=== PATIENT | female | born 1995 | race Two or more races ===

== ENCOUNTER 2016-11-13 04:09 | Emergency (ER) | payer OTHER ==
[~2016-11-13] VITALS: Ht 160 cm; Wt 81.6 kg
[~2016-11-13 04:09] MED LIST: AMOX500T2 PO
[2016-11-13] MEDS: OXYCODONE/APAP 5-325 MG TABLET PO ONE (04:39)
[2016-11-13] MEDS: PSEUDOEPHEDRINE HCL 30 MG TABLET PO ONE (04:39)
[2016-11-13] MEDS ORDERED: PSEUDOEPHEDRINE HCL 30 MG TABLET ONE (04:47)
[2016-11-13] MEDS ORDERED: OXYCODONE/APAP 5-325 MG TABLET ONE (04:47)
--- NOTE | 2016-11-13 04:49 | NUR ---
Patient discharged to home in stable conditon. Written and verbal after care instructions given. Patient verbalizes understanding of instructions.
== END 2016-11-13 04:51 | disposition home or self-care (01) ==
LOC: ER 04:13
DX: H66.91 Otitis media, unspecified, right ear (principal); H61.22 Impacted cerumen, left ear
CPT/HCPCS: A4663

== ENCOUNTER 2018-11-03 20:40 | Emergency (ER) | payer OTHER ==
[~2018-11-03] VITALS: Ht 160 cm; Wt 77.1 kg
[2018-11-03] MEDS ORDERED: LORA10CA PO (20:47)
--- NOTE | 2018-11-03 20:50 | NUR ---
Patient ambulated with stable gait. Speech clear, speaks in complete sentences. No neuro deficits. A/Ox4. Patient came for itching in hands and feet x1 week. Respiratory even and unlabored no cough or sob. No GI/ distress noted.
--- NOTE | 2018-11-03 21:29 | NUR ---
Patient discharged to home in stable conditon. Written and verbal after care instructions given. Patient verbalizes understanding of instructions. Patient ambulated with stable gait.
[2018-11-03 21:30] VITALS: BP 118/76
== END 2018-11-03 21:30 | disposition home or self-care (01) ==
LOC: ER 20:40
DX: L30.9 Dermatitis, unspecified (principal); Z79.899 Other long term (current) drug therapy
CPT/HCPCS: A4663

== ENCOUNTER 2018-12-30 20:21 | Emergency (ER) | payer OTHER ==
[~2018-12-30] VITALS: Ht 160 cm; Wt 77.1 kg
[~2018-12-30 20:21] MED LIST changes: -AMOX500T2 PO; +LORA10CA PO
--- NOTE | 2018-12-30 20:34 | NUR ---
Patient is AOx4, speaking in complete sentences, speech is clear. Able to follow /comprehend directions. Gait is stable. No cardiovascular distress noted. Rate/rhythm regular. No CP. No respiratory distress noted. Respirations even , unlabored, symmetrical chest rise. No adventitious sounds noted. Chief complaint: Patient comes in FROM [facility], C/O N/V BODY ACHES , COUGHING AND CHILLS FOR THE PAST 3DAYS. STATES SHE WAS IN THE ER LAST WEEK FOR THE SAME COMPLAINT. DENIES BLOOD IN EMESIS, DENIES DIARRHEA, DENIES ABD PAIN. LMP 12/02/2018, DENIES USE OF CONTROL No recent travel. No pertinent medical history/NKDA. - ETOH / -recreational drug usE. LBM- yesterday. Continent of bowel and bladder function. SAFETY Patient in bed, bed in lowest position. Siderails up x 2. Call light within reach. Will continue to monitor accordingly
[2018-12-30] MEDS ORDERED: PENICILLIN G BENZATHINE 2.4 MMU/4 ML DISP.SYRIN IM ONE ×2 (20:45→20:47)
--- NOTE | 2018-12-30 20:57 | NUR ---
PT ABLE TO TOLERATE ABX ORDERED. ADMINISTERED RUOQ GLUTEAL. Patient discharged to home in stable conditon. Written and verbal after care instructions given. Patient verbalizes understanding of instructions. AMBULATORY WITH STABLE GAIT
[2018-12-30 21:02] VITALS: BP 115/60
== END 2018-12-30 21:04 | disposition home or self-care (01) ==
LOC: ER 20:21
DX: J02.9 Acute pharyngitis, unspecified (principal); R11.10 Vomiting, unspecified; R51 Headache; Z79.899 Other long term (current) drug therapy
CPT/HCPCS: A4663

== ENCOUNTER 2019-04-18 22:22 | Emergency (ER) | payer OTHER ==
[~2019-04-18] VITALS: Ht 160 cm; Wt 78.0 kg
--- NOTE | 2019-04-18 22:35 | NUR ---
Dr. Benites at bedside for MSE.
--- NOTE | 2019-04-18 23:32 | NUR ---
Pt provided urine sample, sent to lab.
--- NOTE | 2019-04-19 00:10 | NUR ---
Patient discharged to home in stable conditon. Written and verbal after care instructions given. Patient verbalizes understanding of instructions. Pt ambulated out of ER with steady gait, no acute signs of distress, VSS, all belongings taken.
[2019-04-19 00:11] VITALS: BP 109/82
[2019-04-19 00:12] LABS: *URINE HCG, QUAL NEGATIVE (NEGATIVE)
== END 2019-04-19 00:11 | disposition home or self-care (01) ==
LOC: ER 22:24
DX: I88.8 Other nonspecific lymphadenitis (principal); Z79.899 Other long term (current) drug therapy
CPT/HCPCS: 84703; A4663

== ENCOUNTER 2019-07-23 20:59 | Emergency (ER) | payer OTHER ==
[~2019-07-23] VITALS: Ht 160 cm; Wt 77.1 kg
--- NOTE | 2019-07-23 21:15 | NUR ---
Patient c/o RLQ abdominal pain radiating to back with nausea and 2 episode of diarrhea.
--- NOTE | 2019-07-23 21:28 | NUR ---
Dr. Ferrera on bedside for [facility]. Urine specimen sent to lab
[2019-07-23 21:33] LABS: *BILIRUBIN,URIN NEGATIVE (NEGATIVE); *BLOOD, URINE NEGATIVE (NEGATIVE); *CLARITY,URINE CLEAR (CLEAR); *COLOR,URINE YELLOW (YELLOW); *KETONES,URINE NEGATIVE (NEGATIVE); *URINE HCG, QUAL NEGATIVE (NEGATIVE); *UROBILINOGEN,URINE 0.2 E.U./dl (NORMAL); LEUKOCYTE ESTERASE ,URINE NEGATIVE (NEGATIVE); NITRITE, URINE NEGATIVE (NEGATIVE); UGLUCOSE NEGATIVE (NEGATIVE)
[2019-07-23 21:45] LABS: BASOPHILS % (AUTO) 0.7 % (0.0-2.0); EOSINOPHILS # (AUTO) 0.1 K/uL (0.0-0.7); EOSINOPHILS % (AUTO) 1.3 % (0.0-7.0); HEMATOCRIT 37.7 % (31.2-41.9); HEMOGLOBIN 12.3 g/dL (10.9-14.3); LYMPHOCYTES # (AUTO) 1.8 K/uL (20.0-40.0); LYMPHOCYTES % (AUTO) 24.7 % (20.5-51.5); MEAN CORPUSCULAR HEMOGLOBIN 25.8 uug (24.7-32.8); MEAN CORPUSCULAR HGB CONC 33 g/dL (32.3-35.6); MEAN CORPUSCULAR VOLUME 79.3 fL (75.5-95.3); MONOCYTES # (AUTO) 0.5 K/uL (2.0-10.0); MONOCYTES % (AUTO) 6.6 % (0.0-11.0); NEUTROPHILS # (AUTO) 4.9 K/uL (1.8-8.9); NEUTROPHILS % (AUTO) 66.7 % (38.5-71.5); PLATELET COUNT (AUTO) 304 K/uL (179-408); RED BLOOD CELL COUNT(AUTO) 4.75 MIL/uL (3.63-4.92); WHITE BLOOD COUNT (AUTO) 7.3 K/uL (3.8-11.8)
[2019-07-23] MEDS ORDERED: IV NORMAL SALINE 1000 ML BAG IV ONE (21:45)
[2019-07-23] MEDS ORDERED: ONDANSETRON 4 MG/2 ML VIAL IV ONE (21:45)
[2019-07-23] MEDS ORDERED: HYDROMORPHONE 1 MG/1 ML DISP.SYRIN IV ONE (21:45)
[2019-07-23] MEDS ORDERED: ONDANSETRON 4 MG/2 ML VIAL ONE (21:47)
[2019-07-23] MEDS ORDERED: HYDROMORPHONE 1 MG/1 ML DISP.SYRIN ONE (21:47)
[2019-07-23 21:55] LABS: CREATININE 0.8 mg/dL (0.6-1.3); POTASSIUM 3.8 mmol/L (3.5-5.1)
[2019-07-23 22:01] LABS: BILIRUBIN,DIRECT 0.1 mg/dL (0.0-0.2); BILIRUBIN,TOTAL 0.1 mg/dL (0.2-1.0); TOTAL PROTEIN, SERUM 8.5 g/dL (6.4-8.2)
--- NOTE | 2019-07-23 22:35 | NUR ---
Follow up on [facility], spoke to Jayson, stated he had called and they are on their way.
--- NOTE | 2019-07-23 22:46 | NUR ---
Dr Ferrera on bedside.
--- NOTE | 2019-07-23 23:00 | NUR ---
Pt ambulated out of the ER with steady gait. All belongings with pt.
[2019-07-23 23:01] VITALS: BP 114/8
== END 2019-07-23 23:00 | disposition home or self-care (01) ==
LOC: ER 21:01
DX: R10.11 Right upper quadrant pain (principal); R11.0 Nausea; Z79.899 Other long term (current) drug therapy
CPT/HCPCS: 36415; 76705; 80048; 80076; 81001; 83690; 84703; 85025; 96374; 96375; 99284; J1170; J2405; A4663; J7030

== ENCOUNTER 2020-01-12 21:58 | Emergency (ER) | payer OTHER ==
[~2020-01-12] VITALS: Ht 160 cm; Wt 81.6 kg
--- NOTE | 2020-01-12 22:12 | NUR ---
admitted to er-5 ambulatory c/o abd pain, dr weinstein will see & evaluate pt.
--- NOTE | 2020-01-12 22:25 | NUR ---
urine spec sent to lab.
[2020-01-12 22:36] LABS: *BILIRUBIN,URIN NEGATIVE (NEGATIVE); *CLARITY,URINE CLEAR (CLEAR); *COLOR,URINE YELLOW (YELLOW); *KETONES,URINE NEGATIVE (NEGATIVE); *UROBILINOGEN,URINE 0.2 E.U./dl (NORMAL); LEUKOCYTE ESTERASE ,URINE NEGATIVE (NEGATIVE); NITRITE, URINE NEGATIVE (NEGATIVE); UGLUCOSE NEGATIVE (NEGATIVE)
[2020-01-12 22:39] LABS: *BLOOD, URINE TRACE (NEGATIVE)
[2020-01-12 22:40] LABS: *URINE HCG, QUAL NEGATIVE (NEGATIVE)
[2020-01-12 22:45] LABS: BACTERIA,URINE NONE SEEN /HPF (NONE SEEN); RBC,URINE 0-3 /HPF (0-3); SQUAMOUS EPITHELIAL CELL,UR FEW /HPF (NONE SEEN); WBC,URINE 0-3 /HPF (0-3)
--- NOTE | 2020-01-12 23:05 | NUR ---
pelvic exam. done by dr weinstein, spec sent lab.
[2020-01-12 23:22] VITALS: BP 118/72
--- NOTE | 2020-01-12 23:25 | NUR ---
Patient discharged to home in stable condition. Written and verbal after care instructions given. Patient verbalizes understanding of instructions. Stressed follow up or return to ER for worsening s/s.
[2020-01-16 12:07] LABS: *GC NAA Negative (Negative); *TRIC.VAG. NAA Negative (Negative)
== END 2020-01-12 23:26 | disposition home or self-care (01) ==
LOC: ER 22:00
DX: R10.2 Pelvic and perineal pain (principal); N93.9 Abnormal uterine and vaginal bleeding, unspecified
CPT/HCPCS: 84703; 87210; 87491; A4663

== ENCOUNTER 2020-08-13 12:19 | Emergency (ER) | payer BC, OTHER ==
[~2020-08-13] VITALS: Ht 160 cm; Wt 86.2 kg
[2020-08-13] MEDS ORDERED: ONDANSETRON ODT 4 MG TAB.RAPDIS SL ONE (12:45)
[2020-08-13] MEDS ORDERED: AMOXICILLIN-CLAVUL 875-125MG TABLET PO ONE (12:45)
[2020-08-13] MEDS ORDERED: AMOXICILLIN-CLAVUL 875-125MG TABLET ONE (12:55)
[2020-08-13] MEDS ORDERED: ONDANSETRON ODT 4 MG TAB.RAPDIS ONE (12:55)
[2020-08-13 13:09] LABS: *URINE HCG, QUAL NEGATIVE (NEGATIVE)
[2020-08-13] MEDS ORDERED: ONDA4TAB5 PO (13:24)
[2020-08-13] MEDS ORDERED: GUAI600T53 PO (13:24)
[2020-08-13] MEDS ORDERED: IBUP-1955 PO (13:24)
[2020-08-13] MEDS ORDERED: AMOX-430 PO (13:24)
[2020-08-13] MEDS ORDERED: OXYM30SP19 NS (13:24)
[2020-08-13] MEDS ORDERED: FLUC150T PO (13:38)
== END 2020-08-13 13:43 | disposition home or self-care (01) ==
LOC: ER 12:19
DX: J32.9 Chronic sinusitis, unspecified (principal); R05 Cough; Z20.822 Contact with and (suspected) exposure to COVID-19
CPT/HCPCS: 71045; 84703; 87426; 99284; U0003; A4663; Q0162

== ENCOUNTER 2020-10-21 14:11 | Emergency (ER) | payer OTHER ==
[~2020-10-21] VITALS: Ht 162.6 cm; Wt 86.2 kg
[~2020-10-21 14:11] MED LIST changes: +AMOX-430 PO; +FLUC150T PO; +GUAI600T53 PO; +IBUP-1955 PO; +ONDA4TAB5 PO; +OXYM30SP19 NS
[2020-10-21] MEDS ORDERED: IBUPROFEN 600 MG TABLET PO ONE (14:30)
[2020-10-21] MEDS ORDERED: KETOROLAC TROMETHAMINE 30 MG INJ IM ONE (14:45)
[2020-10-21] MEDS ORDERED: KETOROLAC TROMETHAMINE 30 MG INJ ONE (14:56)
[2020-10-21] MEDS ORDERED: IBUPROFEN 600 MG TABLET ONE (14:56)
[2020-10-21 14:59] LABS: *URINE HCG, QUAL NEGATIVE (NEGATIVE)
[2020-10-21] MEDS ORDERED: CYCLOBENZAPRINE HCL 10 MG TABLET PO ONE (15:15)
[2020-10-21] MEDS ORDERED: CYCLOBENZAPRINE HCL 10 MG TABLET ONE (15:33)
[2020-10-21] MEDS ORDERED: PRED20TA PO (15:58)
--- NOTE | 2020-10-21 16:33 | NUR ---
PATIENT WAS SEN BY . MEDS GIVEN ORDERED. PATIENT STATES PAIN HAS DIMINISHED SOME. DC, RX AND FOLLOW UP INSTRUCTIONS GIVEN AND EXPLAINED TO PATIENT WHO STATES SHE UNDERSTANDS ALL INSTRUCTIONS
== END 2020-10-21 16:35 | disposition home or self-care (01) ==
LOC: ER 14:11
DX: M79.605 Pain in left leg (principal); M51.26 Other intervertebral disc displacement, lumbar region
CPT/HCPCS: 72131; 84703; 96372; 99284; J1885; A4663